=== PATIENT | male | born 1960 | race Caucasian/White ===

== ENCOUNTER 2024-10-08 11:39 | Emergency (ER) | payer MEDICARE, OTHER, SELFPAY ==
--- NOTE | 2024-10-08 12:07 | ED.GENMED ---
History of Present Illness
General
Chief Complaint: Fall
Source: patient
Exam Limitations: none
Time Seen by Provider: 10/08/24 11:50
History of Present Illness
History of Present Illness:
64yoM with a history of cirrhosis presenting via EMS for evaluation after a fall about 1.5 hours ago. [place] he lost his balance while walking onto a curb. He fell forward striking his face
against the concrete. No reported LOC. He is presenting with multiple abrasions to the face as well as the bilateral knees. He denies any headache and has no other complaints/pain at this time. He is not taking any blood thinners. Last Tdap was
2.5 years ago.
Phy Exam
General Physical Exam
General Presentation: well appearing and no apparent distress
General age: appears stated age
General Skin: warm and dry
General Habitus: normal
General Mental: alert
ENT Exam
ENT Exam: other (Multiple facial abrasions noted including frontal hematoma, nasal/lip abrasions, and R zygomatic abrasion. There are two gaping lacerations to the inner mucosa of the upper lip. Lacerations are not through and through. R frontal
tooth is mildly loose. Small Christy 1 chip noted to L frontal tooth.)
Eye Exam
Eye Exam: PERRL and EOMI
Pulmonary Exam
Pulmonary Exam: lungs clear, no respiratory distress, no rales, chest non tender, no crackles and no rhonchi
Gastrointestinal Exam
Gastrointestinal Exam: non tender, soft and non distended
Neurological Exam
Neurological Exam: alert
Eddi Coma Scale
Eye Opening: Spontaneous
Verbal Response: Oriented
Motor Response: Obeys Commands
GCS Total Score: 15
Musculoskeletal Exam
Musculoskeletal Exam: other (No C/T/L spine tenderness)
Skin Exam
Skin Exam: normal color and warm/dry
Psychiatric Exam
Psychiatric Exam: normal mood/affect
Course
Orders/Labs/Results
Orders:
Orders
10/08/24 12:10
CT Cervical Spine W/o Iv Contr Urgent
Comment:
Reason For Exam: fall, head injury
CT Facial Bones W/o Iv Contras Urgent
Comment:
Reason For Exam: fall, facial injury
CT Head W/o Iv Contrast Urgent
Comment:
Reason For Exam: fall, head injury
10/08/24 14:34
Bacitracin Zinc [Bacitracin Ointment] 1 applic .ROUTE .STK-MED ONE
Bacitracin Zinc [Bacitracin Ointment] See Dose Instructions TOPICAL NOW STA
Vital Signs
Initial and Last Documented VS:
Initial Vital Signs
Pulse Resp BP Pulse Ox
59 18 107/66 100
10/08/24 12:32 10/08/24 12:32 10/08/24 12:32 10/08/24 12:32
Last Documented Vital Signs
Pulse Resp BP Pulse Ox
59 18 107/66 100
10/08/24 12:32 10/08/24 12:32 10/08/24 12:32 10/08/24 12:32
Procedures
Laceration Closure
Upper Lip:
Status of Wound: clean
Size of Wound in cm: 2
Description of Wound Edges: ragged
Preparation: cleaned with saline
Anesthesia: 1% Lidocaine with epi
Wound exploration: explored to base- no FB
Type of Closure: single layer closure
Skin Closure Material: 5-0 vicryl
Number of sutures: 5
Additional information:
Two lacerations present to inner upper lip. 4 simple interrupted sutures placed to right laceration, 1 suture placed to left laceration.
MDM/Problems Addressed
Differential Diagnosis Includes:
64yoM here after a mechanical fall. Fell forward striking face against sidewalk. No LOC. Presents with multiple facial abrasions as well as two lacerations to the inner upper lip. R frontal tooth is mildly mobile and there is a small chip to the L
frontal tooth. Differential diagnosis includes but is not limited to: closed head injury, abrasions, concussion, intracranial hemorrhage, fracture
Initial ED plan: Check CT head, CT facial bones, and CT cervical spine. Will repair inner lip lacerations given that the lacerations are gaping to minimize infection risk.
*Critical Care Note
Total Time (30-74mins, 75-104mins- exclusive of procedures): Not Applicable
Update Note
Update Note:
CT imaging negative for acute injuries. Inner lip lacerations repaired as above. He was started on a course of Augmentin for infection prophylaxis. He was advised to eat soft foods and rinse mouth after eating. Advised f/u with PCP as well as
OMS/dental follow-up for his tooth/lip injuries. ED return precautions discussed. Patient and in agreement with plan and he was discharged in stable condition.
ED Attending Note
-
Portions of this chart may have been created with voice recognition software.� Occasional wrong word or��sound alike� substitutions may have occurred due to the inherent limitations of voice recognition software.
Discharge Plan
Departure
Patient Disposition: Home (Routine Discharge)
Date of Disposition: 10/08/24
Time of Disposition: 14:12
Patient with high blood pressure during this ER visit?: No
Discharge Problem:
Fall from slip, trip, or stumble, Abrasions of multiple sites, Laceration of lip, Loosening of tooth
Instructions: Head Injury in Adults (DC), Laceration Repair With Stitches (DC)
Prescriptions:
New
amoxicillin-pot clavulanate 875-125 mg tablet
1 tab PO BID Qty: 14 0RF
Referrals:
Francis Judd MD, PhD [Family Provider] -
Rudy Ruelas DMD, MD [Active] -
Activity Restrictions/Additional Instructions:
Take antibiotics as prescribed. Eat soft foods for at least 3 days. Rinse mouth with water after eating. Avoid spicy or salty foods until wound is healed.
Please follow-up with your family doctor and oral surgery/dentist. Return to the ER with any new or worsening symptoms or signs of infection.
Interventions
Interventions:
*Risk Screen - Suicide Last Done: 10/08/24 12:01
*Neglect/Abuse Screening Last Done: 10/08/24 12:01
*ED- Fall Risk Assessment Last Done: 10/08/24 11:58
*ED COVID-19 Vaccine History Last Done: 10/08/24 11:58
*Nursing Disposition Last Done: 10/08/24 14:48
ED-Musculoskeletal Assessment Last Done: 10/08/24 11:58
ED- Neurological Assessment Last Done: 10/08/24 11:58
ED-Skin Assessment Last Done: 10/08/24 11:58
Discharge Date and Time
Discharge Date/Time: 10/08/24 15:05
Print Language: [id number]
[2024-10-08 12:32] VITALS: BP 107/66
[2024-10-08] MEDS: BACITRACIN OINTMENT 1 APPLIC TOPICAL (14:47)
== END 2024-10-08 15:05 | disposition home or self-care (01) ==
LOC: EMR 11:39
PROVIDERS: EMERGENCY PHYSICIAN Student in an Organized Health Care Education/Training Program; FAMILY PHYSICIAN Surgery
DX: S01.511A Laceration without foreign body of lip, initial encounter (principal); S00.83XA Contusion of other part of head, initial encounter; K08.89 Other specified disorders of teeth and supporting structures; S00.81XA Abrasion of other part of head, initial encounter; S80.212A Abrasion, left knee, initial encounter; S80.211A Abrasion, right knee, initial encounter; S00.511A Abrasion of lip, initial encounter; S00.31XA Abrasion of nose, initial encounter; W01.0XXA Fall on same level from slipping, tripping and stumbling without subsequent striking against object, initial encounter; Y92.240 Courthouse as the place of occurrence of the external cause; Y93.01 Activity, walking, marching and hiking; K74.60 Unspecified cirrhosis of liver
CPT/HCPCS: 99284; 12011; 70450; 70486; 72125